=== PATIENT | male | born 1995 | race Caucasian/White ===

== ENCOUNTER → 2018-03-02 | Outpatient (CLI) | payer MEDICAID ==
[2018-03-02 13:59] LABS: ANION GAP 5 MEQ/L (8-16); BLOOD UREA NITROGEN 18 MG/DL (7-18); CALCIUM LEVEL 9.2 MG/DL (8.5-10.1); CARBON DIOXIDE LEVEL 33 MEQ/L (21-32); CHLORIDE LEVEL 102 MEQ/L (98-107); CREATININE FOR GFR 1.21 MG/DL (0.70-1.30); GLOMERULAR FILTRATION RATE > 60.0 (>60); GLUCOSE, FASTING 100 MG/DL (70-100); POTASSIUM SERUM 4.2 MEQ/L (3.5-5.1); SODIUM LEVEL 140 MEQ/L (136-145)
== END ==
LOC: M LAB 12:51
DX: Z00.00 Encounter for general adult medical examination without abnormal findings (principal)
CPT/HCPCS: 80048

== ENCOUNTER → 2021-12-01 | Outpatient (REF) | payer OTHER ==
[2021-12-01 17:16] LABS: HEMATOCRIT 41.6 % (42.0-52.0); HEMOGLOBIN 14.1 g/dl (13.5-17.5); MEAN CORPUSCULAR HEMOGLOBIN 29.7 pg (27.0-33.0); MEAN CORPUSCULAR HGB CONC 33.9 g/dl (32.0-36.5); MEAN CORPUSCULAR VOLUME 87.6 fl (80.0-96.0); PLATELET COUNT, AUTOMATED 223 10^3/uL (150-450); RED BLOOD COUNT 4.75 10^6/uL (4.30-6.10); WHITE BLOOD COUNT 6.3 10^3/uL (4.0-10.0)
[2021-12-01 17:54] LABS: ALT/SGPT 22 U/L (12-78); BILIRUBIN,TOTAL 0.5 MG/DL (0.2-1.0); BLOOD UREA NITROGEN 13 MG/DL (7-18); CALCIUM LEVEL 9.6 MG/DL (8.5-10.1); CARBON DIOXIDE LEVEL 33 MEQ/L (21-32); CHLORIDE LEVEL 104 MEQ/L (98-107); CREATININE FOR GFR 0.95 MG/DL (0.70-1.30); GLOMERULAR FILTRATION RATE > 60.0 (>60); GLUCOSE, FASTING 64 MG/DL (70-100); POTASSIUM SERUM 4.4 MEQ/L (3.5-5.1); SODIUM LEVEL 140 MEQ/L (136-145); TOTAL PROTEIN 7.3 GM/DL (6.4-8.2)
[2021-12-01 18:43] LABS: HEPATITIS B SURFACE ANTIGEN NEGATIVE (NEGATIVE)
[2021-12-01 18:57] LABS: GC DNA AMPLIFICATION NEGATIVE (NEGATIVE)
[2021-12-01 19:10] LABS: HEPATITIS C VIRUS ABY INDEX < 0.0 INDEX (<0.8)
[2021-12-01 19:11] LABS: HIV 1&2 SCREEN CENTAUR NEGATIVE (NEGATIVE)
== END ==
LOC: M LAB REF 16:23
PROVIDERS: ATTEND Family Medicine
DX: F11.20 Opioid dependence, uncomplicated (principal)

== ENCOUNTER 2022-03-22 19:24 | Inpatient (IN) | payer OTHER, SELFPAY ==
[~2022-03-22] VITALS: Ht 170.2 cm; Wt 69.5 kg
[2022-03-22 19:59] LABS: HEMOGLOBIN 14.5 g/dl (13.5-17.5); MEAN CORPUSCULAR HEMOGLOBIN 29.1 pg (27.0-33.0); MEAN CORPUSCULAR HGB CONC 34.5 g/dl (32.0-36.5); MEAN CORPUSCULAR VOLUME 84.3 fl (80.0-96.0); PLATELET COUNT, AUTOMATED 245 10^3/uL (150-450); RED BLOOD COUNT 4.98 10^6/uL (4.30-6.10)
[2022-03-22 20:29] LABS: AMPHETAMINES LEVEL URINE NEGATIVE (NEGATIVE)
[2022-03-22 20:30] LABS: BARBITURATES URINE NEGATIVE (NEGATIVE); BENZODIAZEPINES URINE NEGATIVE (NEGATIVE); OPIATES URINE NEGATIVE (NEGATIVE)
[2022-03-22 20:31] LABS: COCAINE METABOLITE URINE NEGATIVE (NEGATIVE); METHADONE URINE NEGATIVE (NEGATIVE); PHENCYCLIDINE URINE NEGATIVE (NEGATIVE)
[2022-03-22 20:33] LABS: ETHYL ALCOHOL (ETHANOL) 0.004 % (0.000-0.010)
[2022-03-22 20:34] LABS: ACETAMINOPHEN LEVEL < 2.0 UG/ML (10.0-20.0); BILIRUBIN,DIRECT 0.2 MG/DL (<0.4); CANNABINOIDS URINE POSITIVE (NEGATIVE)
[2022-03-22 20:35] LABS: ALBUMIN 4.8 G/DL (3.2-5.2); ALKALINE PHOSPHATASE 67 U/L (46-116); ALT/SGPT 19 U/L (7.0-40); AST/SGOT 35 U/L (<34); BILIRUBIN,TOTAL 0.5 MG/DL (0.3-1.2); BLOOD UREA NITROGEN 17 MG/DL (9-23); CALCIUM LEVEL 9.8 MG/DL (8.5-10.1); CARBON DIOXIDE LEVEL 30 MMOL/L (20-31); CHLORIDE LEVEL 104 MMOL/L (98-107); CREATININE FOR GFR 0.96 MG/DL (0.70-1.30); GLOMERULAR FILTRATION RATE > 60.0 (>60); GLUCOSE, FASTING 98 MG/DL (60-100); POTASSIUM SERUM 4.1 MMOL/L (3.5-5.1); SALICYLATE LEVEL < 3.0 MG/DL (<30); SODIUM LEVEL 140 MMOL/L (136-145); TOTAL PROTEIN 7.4 G/DL (5.7-8.2)
[2022-03-22 20:36] LABS: THYROID STIMULATING HORMONE 3.959 uIU/ML (0.55-4.78)
[2022-03-22 20:43] LABS: RSV AMPLIFICATION NEGATIVE (NEGATIVE)
[2022-03-22] MEDS ORDERED: HOME MED LIST COMPLETE! XX SCH (23:00)
[2022-03-23] MEDS ORDERED: MOM 30ML SUSPENSION UDC PO PRN (00:30)
[2022-03-23] MEDS ORDERED: ACETAMINOPHEN TAB 650MG DOSE (2X325MG) PO PRN (00:30)
[2022-03-23] MEDS ORDERED: MAALOX 30 ML SUSP *UDC PO PRN (00:30)
[2022-03-23] MEDS ORDERED: OLANZapine ORAL DISINTEGRATING TAB 5MG PO PRN (00:30)
[2022-03-23] MEDS: NICOTINE 14 MG/24 HR TRANSDERMAL TD SCH (09:00)
[2022-03-23] MEDS: OLANZapine 5 MG TAB PO SCH ×2 (09:00→21:00)
[2022-03-23] MEDS ORDERED: BUPRENORPHINE/NALOXONE 8-2MG SUBLINGUAL TABLET(SUBOXONE) SL SCH (21:00)
[2022-03-23] MEDS: traZODone 50 MG TAB PO PRN (21:05)
[2022-03-24 06:19] VITALS: BP 145/84
[2022-03-24] MEDS: OLANZapine 5 MG TAB PO SCH ×2 (09:00→22:09)
[2022-03-24] MEDS: NICOTINE 14 MG/24 HR TRANSDERMAL TD SCH (09:00)
[2022-03-25] MEDS: OLANZapine 5 MG TAB PO SCH ×2 (09:00→21:00)
[2022-03-25] MEDS: NICOTINE 14 MG/24 HR TRANSDERMAL TD SCH (09:00)
[2022-03-25 19:21] VITALS: BP 137/104
[2022-03-25] MEDS: traZODone 50 MG TAB PO PRN (21:27)
[2022-03-26] MEDS: NICOTINE 14 MG/24 HR TRANSDERMAL TD SCH (09:00)
[2022-03-26] MEDS: OLANZapine 5 MG TAB PO SCH ×2 (09:00→21:00)
[2022-03-26 16:28] VITALS: BP 136/90
[2022-03-27 06:22] VITALS: BP 140/102
[2022-03-27] MEDS: OLANZapine 5 MG TAB PO SCH ×2 (09:00→20:45)
[2022-03-27] MEDS: NICOTINE 14 MG/24 HR TRANSDERMAL TD SCH (09:00)
[2022-03-27 16:30] VITALS: BP 140/90
[2022-03-28 06:34] VITALS: BP 150/95
[2022-03-28] MEDS: OLANZapine 5 MG TAB PO SCH ×2 (09:00→20:31)
[2022-03-28] MEDS: NICOTINE 14 MG/24 HR TRANSDERMAL TD SCH (09:00)
[2022-03-29 06:59] VITALS: BP 143/77
[2022-03-29] MEDS: NICOTINE 14 MG/24 HR TRANSDERMAL TD SCH (09:00)
[2022-03-29] MEDS: OLANZapine 5 MG TAB PO SCH ×2 (09:00→20:19)
[2022-03-30 06:35] VITALS: BP 136/79
[2022-03-30] MEDS: OLANZapine 5 MG TAB PO SCH (08:24)
[2022-03-30] MEDS: NICOTINE 14 MG/24 HR TRANSDERMAL TD SCH (08:24)
[2022-03-30] MEDS ORDERED: NICO14PA TD (09:16)
== END 2022-03-30 15:00 | disposition home or self-care (01) | DRG 760 ==
LOC: M ED 19:24 → M ED INP 03-23 00:26 → M PSY 03-23 01:33
PROVIDERS: ADMIT Student in an Organized Health Care Education/Training Program; ATTEND Student in an Organized Health Care Education/Training Program
DX: F22 Delusional disorders (principal); F11.10 Opioid abuse, uncomplicated; F17.200 Nicotine dependence, unspecified, uncomplicated; F12.10 Cannabis abuse, uncomplicated

== ENCOUNTER 2022-04-21 12:36 | Inpatient (IN) | payer OTHER ==
[~2022-04-21] VITALS: Ht 170.2 cm; Wt 72.3 kg
[~2022-04-21 12:36] MED LIST: NICO14PA TD
[2022-04-21 13:17] LABS: HEMATOCRIT 47.7 % (42.0-52.0); HEMOGLOBIN 16.1 g/dl (13.5-17.5); MEAN CORPUSCULAR HEMOGLOBIN 30.1 pg (27.0-33.0); MEAN CORPUSCULAR HGB CONC 33.8 g/dl (32.0-36.5); MEAN CORPUSCULAR VOLUME 89.2 fl (80.0-96.0); PLATELET COUNT, AUTOMATED 207 10^3/uL (150-450); RED BLOOD COUNT 5.35 10^6/uL (4.30-6.10)
[2022-04-21 13:50] LABS: RSV AMPLIFICATION NEGATIVE (NEGATIVE)
[2022-04-21 14:03] LABS: ETHYL ALCOHOL (ETHANOL) 0.005 % (0.000-0.010)
[2022-04-21 14:04] LABS: SALICYLATE LEVEL < 3.0 MG/DL (<30)
[2022-04-21 14:05] LABS: ACETAMINOPHEN LEVEL < 2.0 UG/ML (10.0-20.0); ALBUMIN 4.8 G/DL (3.2-5.2); ALKALINE PHOSPHATASE 82 U/L (46-116); ALT/SGPT < 9 U/L (7.0-40); AST/SGOT 33 U/L (<34); BILIRUBIN,DIRECT 0.6 MG/DL (<0.4); BILIRUBIN,TOTAL 1.7 MG/DL (0.3-1.2); BLOOD UREA NITROGEN 23 MG/DL (9-23); CALCIUM LEVEL 9.5 MG/DL (8.5-10.1); CARBON DIOXIDE LEVEL 24 MMOL/L (20-31); CHLORIDE LEVEL 100 MMOL/L (98-107); CREATININE FOR GFR 1.06 MG/DL (0.70-1.30); GLOMERULAR FILTRATION RATE > 60.0 (>60); GLUCOSE, FASTING 72 MG/DL (60-100); POTASSIUM SERUM 3.7 MMOL/L (3.5-5.1); SODIUM LEVEL 138 MMOL/L (136-145); THYROID STIMULATING HORMONE 3.764 uIU/ML (0.55-4.78)
[2022-04-21 16:42] LABS: BARBITURATES URINE NEGATIVE (NEGATIVE); BENZODIAZEPINES URINE NEGATIVE (NEGATIVE); COCAINE METABOLITE URINE NEGATIVE (NEGATIVE); METHADONE URINE NEGATIVE (NEGATIVE)
[2022-04-21 16:43] LABS: OPIATES URINE NEGATIVE (NEGATIVE); PHENCYCLIDINE URINE NEGATIVE (NEGATIVE)
[2022-04-21 16:48] LABS: AMPHETAMINES LEVEL URINE POSITIVE (NEGATIVE); CANNABINOIDS URINE POSITIVE (NEGATIVE)
[2022-04-21] MEDS ORDERED: PEPC20TA18 PO (19:40)
[2022-04-21] MEDS ORDERED: HOME MED LIST COMPLETE! XX SCH (21:45)
[2022-04-22] MEDS: NICOTINE 21MG/24HR 1 EA TRANSDERMAL TD SCH (11:30)
[2022-04-22] MEDS ORDERED: traZODone 50 MG TAB PO PRN (12:25)
[2022-04-22] MEDS ORDERED: MOM 30ML SUSPENSION UDC PO PRN (12:25)
[2022-04-22] MEDS ORDERED: IBUPROFEN 400MG TAB PO PRN (12:25)
[2022-04-22] MEDS ORDERED: MAALOX 30 ML SUSP *UDC PO PRN (12:25)
[2022-04-22] MEDS ORDERED: HALOPERIDOL 5MG/ML 1ML VIAL As Ordered ONE (15:09)
[2022-04-22] MEDS ORDERED: LORazepam 2 MG/ML VIAL As Ordered ONE (15:09)
[2022-04-22] MEDS ORDERED: LORazepam 2 MG/ML VIAL IV STA (15:09)
[2022-04-22] MEDS ORDERED: OLANZapine INTRAMUSCULAR 10MG VIAL IM ONE (15:10)
[2022-04-22] MEDS ORDERED: diphenhydrAMINE 50MG/ML VIAL IM STA (15:20)
[2022-04-22] MEDS ORDERED: HALOPERIDOL 5MG/ML 1ML VIAL IM STA (15:20)
[2022-04-23 06:20] VITALS: BP 117/60
[2022-04-23] MEDS: NICOTINE 21MG/24HR 1 EA TRANSDERMAL TD SCH (09:00)
[2022-04-23] MEDS ORDERED: LIDOCAINE VISCOUS 2% SOLN 15ML UDC SS PRN (13:05)
[2022-04-23] MEDS ORDERED: BENZOCAINE 10% 9GM TUBE (ANBESOL) TOP PRN (13:05)
[2022-04-23] MEDS ORDERED: OLANZapine ORAL DISINTEGRATING TAB 5MG PO PRN (16:05)
[2022-04-23] MEDS: BENZOCAINE 10% 9GM TUBE (ANBESOL) MT SCH ×2 (16:25→21:00)
[2022-04-23] MEDS: OLANZapine 5 MG TAB PO SCH (21:00)
[2022-04-24 06:21] VITALS: BP 110/65
[2022-04-24] MEDS: NICOTINE 21MG/24HR 1 EA TRANSDERMAL TD SCH (09:00)
[2022-04-24] MEDS: OLANZapine 5 MG TAB PO SCH ×2 (09:00→21:00)
[2022-04-24] MEDS: BENZOCAINE 10% 9GM TUBE (ANBESOL) MT SCH ×4 (09:21→21:51)
[2022-04-24 14:26] VITALS: BP 158/112
[2022-04-24] MEDS ORDERED: amLODIPine 5 MG TAB PO ONE (14:40)
[2022-04-24] MEDS ORDERED: cloNIDine 0.1MG TABLET PO ONE (15:00)
[2022-04-24] MEDS ORDERED: ISOVUE-370 76% 100ML VIAL As Ordered ONE (15:13)
[2022-04-24 15:40] VITALS: BP 140/100
[2022-04-24 15:41] VITALS: BP 140/100
[2022-04-24 15:45] LABS: BLOOD UREA NITROGEN 16 MG/DL (9-23); CALCIUM LEVEL 9.4 MG/DL (8.5-10.1); CARBON DIOXIDE LEVEL 32 MMOL/L (20-31); CHLORIDE LEVEL 100 MMOL/L (98-107); CREATININE FOR GFR 0.95 MG/DL (0.70-1.30); GLOMERULAR FILTRATION RATE > 60.0 (>60); GLUCOSE, FASTING 92 MG/DL (60-100); POTASSIUM SERUM 4.4 MMOL/L (3.5-5.1); SODIUM LEVEL 138 MMOL/L (136-145)
[2022-04-24 15:48] LABS: PROLACTIN 15.81 NG/ML (2.1-17.7)
[2022-04-24 16:32] VITALS: BP 122/90
[2022-04-25 06:16] VITALS: BP 143/67
[2022-04-25] MEDS ORDERED: PROHANCE 279.3MG/ML 15ML VIAL As Ordered ONE (08:52)
[2022-04-25] MEDS: OLANZapine 5 MG TAB PO SCH ×2 (09:00→21:00)
[2022-04-25] MEDS: NICOTINE 21MG/24HR 1 EA TRANSDERMAL TD SCH (09:00)
[2022-04-25] MEDS: BENZOCAINE 10% 9GM TUBE (ANBESOL) MT SCH ×4 (09:25→21:00)
[2022-04-25 16:45] VITALS: BP 130/70
[2022-04-26] MEDS: NICOTINE 21MG/24HR 1 EA TRANSDERMAL TD SCH (09:00)
[2022-04-26] MEDS ORDERED: ASPIRIN 81MG ENTERIC TABLET PO SCH (09:00)
[2022-04-26] MEDS: OLANZapine 5 MG TAB PO SCH ×2 (09:00→21:00)
[2022-04-26] MEDS: BENZOCAINE 10% 9GM TUBE (ANBESOL) MT SCH ×4 (09:00→21:00)
[2022-04-26 18:19] VITALS: BP 137/77
[2022-04-27] MEDS: NICOTINE 21MG/24HR 1 EA TRANSDERMAL TD SCH (09:00)
[2022-04-27] MEDS: OLANZapine 5 MG TAB PO SCH (09:00)
[2022-04-27] MEDS: BENZOCAINE 10% 9GM TUBE (ANBESOL) MT SCH (09:00)
== END 2022-04-27 12:16 | disposition home or self-care (01) | DRG 751 ==
LOC: M ED 14:12 → M ED INP 04-22 12:23 → M PSY 04-22 23:27
PROVIDERS: ADMIT Student in an Organized Health Care Education/Training Program; ATTEND Psychiatry & Neurology Psychiatry
DX: F29 Unspecified psychosis not due to a substance or known physiological condition (principal); F17.200 Nicotine dependence, unspecified, uncomplicated; F15.90 Other stimulant use, unspecified, uncomplicated; F11.90 Opioid use, unspecified, uncomplicated; F14.90 Cocaine use, unspecified, uncomplicated; F12.90 Cannabis use, unspecified, uncomplicated

== ENCOUNTER 2022-09-06 11:19 | Emergency (ER) | payer OTHER ==
[~2022-09-06] VITALS: Ht 170.2 cm; Wt 68.2 kg
[~2022-09-06 11:19] MED LIST changes: +PEPC20TA18 PO
[2022-09-06 11:58] LABS: HEMATOCRIT 45.6 % (42.0-52.0); HEMOGLOBIN 15.2 g/dl (13.5-17.5); MEAN CORPUSCULAR HEMOGLOBIN 29.6 pg (27.0-33.0); MEAN CORPUSCULAR HGB CONC 33.3 g/dl (32.0-36.5); MEAN CORPUSCULAR VOLUME 88.9 fl (80.0-96.0); PLATELET COUNT, AUTOMATED 280 10^3/uL (150-450); RED BLOOD COUNT 5.13 10^6/uL (4.30-6.10); WHITE BLOOD COUNT 8.1 10^3/uL (4.0-10.0)
[2022-09-06 12:22] LABS: ETHYL ALCOHOL (ETHANOL) 0.006 % (0.000-0.010)
[2022-09-06 12:24] LABS: ACETAMINOPHEN LEVEL < 2.0 UG/ML (10.0-20.0); ALBUMIN 3.8 G/DL (3.2-5.2); ALKALINE PHOSPHATASE 93 U/L (46-116); ALT/SGPT 197 U/L (7.0-40); AST/SGOT 116 U/L (<34); BILIRUBIN,DIRECT < 0.1 MG/DL (<0.4); BILIRUBIN,TOTAL 0.3 MG/DL (0.3-1.2); BLOOD UREA NITROGEN 11 MG/DL (9-23); CARBON DIOXIDE LEVEL 30 MMOL/L (20-31); CHLORIDE LEVEL 101 MMOL/L (98-107); CREATININE FOR GFR 0.77 MG/DL (0.70-1.30); GLOMERULAR FILTRATION RATE > 60.0 (>60); GLUCOSE, FASTING 75 MG/DL (60-100); POTASSIUM SERUM 4.7 MMOL/L (3.5-5.1); SALICYLATE LEVEL 3.2 MG/DL (<30); SODIUM LEVEL 138 MMOL/L (136-145); TOTAL PROTEIN 6.7 G/DL (5.7-8.2)
[2022-09-06 12:26] LABS: THYROID STIMULATING HORMONE 1.928 uIU/ML (0.55-4.78)
[2022-09-06 12:31] LABS: PHENCYCLIDINE URINE NEGATIVE (NEGATIVE)
[2022-09-06 12:32] LABS: AMPHETAMINES LEVEL URINE NEGATIVE (NEGATIVE); BARBITURATES URINE NEGATIVE (NEGATIVE); BENZODIAZEPINES URINE NEGATIVE (NEGATIVE); CANNABINOIDS URINE NEGATIVE (NEGATIVE); COCAINE METABOLITE URINE NEGATIVE (NEGATIVE); METHADONE URINE NEGATIVE (NEGATIVE); OPIATES URINE NEGATIVE (NEGATIVE)
[2022-09-06 18:34] VITALS: BP 137/78
== END 2022-09-06 18:35 | disposition home or self-care (01) ==
LOC: M ED 11:19
DX: F15.10 Other stimulant abuse, uncomplicated (principal); F11.10 Opioid abuse, uncomplicated; F17.200 Nicotine dependence, unspecified, uncomplicated

== ENCOUNTER 2022-10-29 08:18 | Emergency (ER) | payer OTHER ==
[~2022-10-29] VITALS: Ht 170.2 cm; Wt 66.8 kg
[2022-10-29] MEDS ORDERED: SUBO8MIS SL (08:32)
[2022-10-29] MEDS ORDERED: ACETAMINOPHEN 500 MG TAB PO ONE (09:50)
[2022-10-29] MEDS ORDERED: LIDOCAINE W/EPINEPHRINE 1% 20ML VIAL SC ONE (09:55)
[2022-10-29] MEDS ORDERED: BOOSTRIX VACCINE (TETANUS/DIPHTH/ACEL. PERTUSSIS) 0.5ML SYR IM ONE (11:40)
[2022-10-29] MEDS ORDERED: IBUPROFEN 800 MG TAB PO ONE (13:05)
[2022-10-29 13:29] VITALS: BP 134/28; TEMP 98.2; O2SAT 94
== END 2022-10-29 13:32 | disposition home or self-care (01) ==
LOC: M ED 08:18
DX: S01.412A Laceration without foreign body of left cheek and temporomandibular area, initial encounter (principal); S03.00XA Dislocation of jaw, unspecified side, initial encounter; S22.32XA Fracture of one rib, left side, initial encounter for closed fracture; F17.200 Nicotine dependence, unspecified, uncomplicated; B17.10 Acute hepatitis C without hepatic coma; Y04.0XXA Assault by unarmed brawl or fight, initial encounter; Y92.149 Unspecified place in prison as the place of occurrence of the external cause; Z79.899 Other long term (current) drug therapy

== ENCOUNTER 2023-01-20 17:45 | Emergency (ER) | payer OTHER ==
[~2023-01-20 17:45] MED LIST changes: +CEPH500C PO; +IBUP-1022 PO; +SUBO8MIS SL
[2023-01-20 18:36] LABS: HEMATOCRIT 31.9 % (42.0-52.0); HEMOGLOBIN 10.7 g/dl (13.5-17.5); MEAN CORPUSCULAR HEMOGLOBIN 29.5 pg (27.0-33.0); MEAN CORPUSCULAR HGB CONC 33.5 g/dl (32.0-36.5); MEAN CORPUSCULAR VOLUME 87.9 fl (80.0-96.0); PLATELET COUNT, AUTOMATED 311 10^3/uL (150-450); RED BLOOD COUNT 3.63 10^6/uL (4.30-6.10); WHITE BLOOD COUNT 6.5 10^3/uL (4.0-10.0)
[2023-01-20 19:01] LABS: ETHYL ALCOHOL (ETHANOL) < 0.003 % (0.000-0.010)
[2023-01-20 19:03] LABS: ACETAMINOPHEN LEVEL < 2.0 UG/ML (10.0-20.0); ALBUMIN 3.2 G/DL (3.2-5.2); ALKALINE PHOSPHATASE 80 U/L (46-116); ALT/SGPT 28 U/L (7.0-40); AST/SGOT 29 U/L (<34); BILIRUBIN,DIRECT 0.2 MG/DL (<0.4); BILIRUBIN,TOTAL 0.5 MG/DL (0.3-1.2); BLOOD UREA NITROGEN 12 MG/DL (9-23); CALCIUM LEVEL 8.5 MG/DL (8.5-10.1); CARBON DIOXIDE LEVEL 29 MMOL/L (20-31); CHLORIDE LEVEL 109 MMOL/L (98-107); CREATININE FOR GFR 0.68 MG/DL (0.70-1.30); GLOMERULAR FILTRATION RATE > 60.0 (>60); GLUCOSE, FASTING 108 MG/DL (60-100); POTASSIUM SERUM 4.1 MMOL/L (3.5-5.1); SALICYLATE LEVEL < 3.0 MG/DL (<30); SODIUM LEVEL 142 MMOL/L (136-145); TOTAL PROTEIN 5.8 G/DL (5.7-8.2)
[2023-01-20 19:04] LABS: THYROID STIMULATING HORMONE 0.886 uIU/ML (0.55-4.78)
[2023-01-20 19:10] LABS: AMPHETAMINES LEVEL URINE NEGATIVE (NEGATIVE); BARBITURATES URINE NEGATIVE (NEGATIVE)
[2023-01-20 19:11] LABS: BENZODIAZEPINES URINE NEGATIVE (NEGATIVE); CANNABINOIDS URINE NEGATIVE (NEGATIVE); COCAINE METABOLITE URINE NEGATIVE (NEGATIVE); METHADONE URINE NEGATIVE (NEGATIVE); OPIATES URINE NEGATIVE (NEGATIVE); PHENCYCLIDINE URINE NEGATIVE (NEGATIVE)
[2023-01-21 12:03] VITALS: BP 144/84; TEMP 97.2; O2SAT 98
[2023-01-21] MEDS ORDERED: IBUP-1022 PO (21:04)
[2023-01-21] MEDS ORDERED: CEPH500C PO (21:04)
== END 2023-01-21 13:39 | disposition home or self-care (01) ==
LOC: M ED 17:45
DX: F39 Unspecified mood [affective] disorder (principal)

== ENCOUNTER 2023-01-21 18:42 | Inpatient (IN) | payer OTHER ==
[~2023-01-21] VITALS: Ht 170.2 cm; Wt 63.5 kg
[2023-01-21 21:01] LABS: HEMATOCRIT 34.8 % (42.0-52.0); HEMOGLOBIN 11.8 g/dl (13.5-17.5); MEAN CORPUSCULAR HEMOGLOBIN 29.4 pg (27.0-33.0); MEAN CORPUSCULAR HGB CONC 33.9 g/dl (32.0-36.5); MEAN CORPUSCULAR VOLUME 86.6 fl (80.0-96.0); PLATELET COUNT, AUTOMATED 403 10^3/uL (150-450); RED BLOOD COUNT 4.02 10^6/uL (4.30-6.10)
[2023-01-21] MEDS ORDERED: IBUP-1022 PO (21:04)
[2023-01-21] MEDS ORDERED: CEPH500C PO (21:04)
[2023-01-21] MEDS ORDERED: HOME MED LIST COMPLETE! XX SCH (21:05)
[2023-01-21 21:24] LABS: AMPHETAMINES LEVEL URINE NEGATIVE (NEGATIVE); BENZODIAZEPINES URINE NEGATIVE (NEGATIVE)
[2023-01-21 21:25] LABS: BARBITURATES URINE NEGATIVE (NEGATIVE); CANNABINOIDS URINE NEGATIVE (NEGATIVE); COCAINE METABOLITE URINE NEGATIVE (NEGATIVE); METHADONE URINE NEGATIVE (NEGATIVE); OPIATES URINE NEGATIVE (NEGATIVE); PHENCYCLIDINE URINE NEGATIVE (NEGATIVE)
[2023-01-21 21:26] LABS: CK-MB VALUE MASS 2.6 NG/ML (<3.6)
[2023-01-21 21:27] LABS: ETHYL ALCOHOL (ETHANOL) < 0.003 % (0.000-0.010)
[2023-01-21 21:28] LABS: CPK CREATINE PHOSPHOKINASE 384 U/L (46-171); MB/CK RELATIVE INDEX 0.67 (< OR =4)
[2023-01-21 21:29] LABS: SALICYLATE LEVEL < 3.0 MG/DL (<30)
[2023-01-21 21:30] LABS: THYROID STIMULATING HORMONE 1.134 uIU/ML (0.55-4.78)
[2023-01-21 21:31] LABS: ALBUMIN 3.6 G/DL (3.2-5.2); ALKALINE PHOSPHATASE 83 U/L (46-116); ALT/SGPT 26 U/L (7.0-40); AST/SGOT 21 U/L (<34); BILIRUBIN,DIRECT 0.2 MG/DL (<0.4); BILIRUBIN,TOTAL 0.4 MG/DL (0.3-1.2); BLOOD UREA NITROGEN 12 MG/DL (9-23); CALCIUM LEVEL 9.2 MG/DL (8.5-10.1); CARBON DIOXIDE LEVEL 30 MMOL/L (20-31); CHLORIDE LEVEL 106 MMOL/L (98-107); CREATININE FOR GFR 0.58 MG/DL (0.70-1.30); GLOMERULAR FILTRATION RATE > 60.0 (>60); GLUCOSE, FASTING 107 MG/DL (60-100); POTASSIUM SERUM 4.1 MMOL/L (3.5-5.1); SODIUM LEVEL 141 MMOL/L (136-145); TOTAL PROTEIN 6.6 G/DL (5.7-8.2)
[2023-01-21 22:35] LABS: CK-MB VALUE MASS 2.3 NG/ML (<3.6)
[2023-01-21 22:38] LABS: MB/CK RELATIVE INDEX 0.62 (< OR =4)
[2023-01-22] MEDS: CEPHALEXIN 500 MG CAP PO SCH ×4 (00:25→21:25)
[2023-01-22 01:45] LABS: AMORPHOUS SEDIMENT SMALL (NEGATIVE); APPEARANCE, URINE CLOUDY (CLEAR); BACTERIA, URINE AUTO NEGATIVE (NEGATIVE); BILIRUBIN, URINE AUTO NEGATIVE (NEGATIVE); BLOOD, URINE BLOOD NEGATIVE (NEGATIVE); CALCIUM OXALATE CRYSTALS SMALL; COLOR, URINE AMBER (YELLOW); GLUCOSE, URINE (UA) AUTO 1+ mg/dL (NEGATIVE); KETONE, URINE AUTO NEGATIVE (NEGATIVE); LEUKOCYTE ESTERASE, URINE AUTO NEGATIVE (NEGATIVE); MUCUS, URINE MODERATE (NEGATIVE); NITRITE, URINE AUTO NEGATIVE (NEGATIVE); PROTEIN, URINE AUTO 1+ mg/dL (NEGATIVE); RBC, URINE AUTO 0 /HPF (0-3); SQUAMOUS EPITHELIAL CELL UR AU 0 /HPF (0-6); WBC, URINE AUTO 1 /HPF (0-3)
[2023-01-23] MEDS: CEPHALEXIN 500 MG CAP PO SCH ×3 (08:23→20:08)
[2023-01-23] MEDS ORDERED: ACETAMINOPHEN TAB 650MG DOSE (2X325MG) PO ONE (20:05)
[2023-01-24] MEDS: CEPHALEXIN 500 MG CAP PO SCH ×3 (09:12→20:32)
[2023-01-24] MEDS ORDERED: MOM 30ML SUSPENSION UDC PO PRN (15:25)
[2023-01-24] MEDS ORDERED: diphenhydrAMINE 25MG CAP PO PRN (15:25)
[2023-01-24 17:50] VITALS: BP 136/94; TEMP 98.4; O2SAT 98
[2023-01-25 06:50] VITALS: BP 154/110; TEMP 99.5; O2SAT 99
[2023-01-25 09:43] VITALS: BP 120/82
[2023-01-25 16:12] VITALS: BP 146/98; TEMP 98.5; O2SAT 100
[2023-01-25] MEDS: OLANZapine ORAL DISINTEGRATING TAB 5MG PO PRN (18:15)
[2023-01-26 06:52] VITALS: BP 143/87; TEMP 98.1; O2SAT 98
[2023-01-26 16:32] VITALS: BP 138/95; TEMP 99.3; O2SAT 98
[2023-01-27 06:31] VITALS: BP 144/96; TEMP 98.7; O2SAT 98
[2023-01-27] MEDS: BENZTROPINE 1 MG TAB PO SCH ×2 (13:23→20:11)
[2023-01-27] MEDS: OLANZapine 5 MG TAB PO SCH ×2 (13:23→20:11)
[2023-01-27] MEDS: NICOTINE 21MG/24HR 1 EA TRANSDERMAL TD SCH (15:58)
[2023-01-27 18:19] VITALS: BP 177/114; TEMP 98.7; O2SAT 99
[2023-01-27 18:20] VITALS: BP 165/110
[2023-01-27] MEDS: QUEtiapine FUMARATE 50MG TAB PO SCH (20:11)
[2023-01-28 06:27] VITALS: BP 144/86; TEMP 98.2; O2SAT 97
[2023-01-28 06:56] LABS: CHOLESTEROL RISK RATIO 3.19 (<5); HDL CHOLESTEROL 44.4 MG/DL (>40); LDL CHOLESTEROL 56.6 MG/DL (<100); NON-HDL-C 97.6 MG/DL
[2023-01-28] MEDS: NICOTINE 21MG/24HR 1 EA TRANSDERMAL TD SCH (09:00)
[2023-01-28] MEDS: OLANZapine 5 MG TAB PO SCH ×2 (09:35→20:25)
[2023-01-28] MEDS: BENZTROPINE 1 MG TAB PO SCH ×2 (09:35→20:26)
[2023-01-28] MEDS: OLANZapine ORAL DISINTEGRATING TAB 5MG PO PRN (15:31)
[2023-01-28] MEDS: QUEtiapine FUMARATE 50MG TAB PO SCH (20:26)
[2023-01-29 06:51] VITALS: BP 139/88; TEMP 98.6; O2SAT 98
[2023-01-29] MEDS: NICOTINE 21MG/24HR 1 EA TRANSDERMAL TD SCH (09:00)
[2023-01-29] MEDS: OLANZapine 5 MG TAB PO SCH ×2 (09:14→20:12)
[2023-01-29] MEDS: BENZTROPINE 1 MG TAB PO SCH ×2 (09:14→20:12)
[2023-01-29 16:25] VITALS: BP 140/92; TEMP 98.3; O2SAT 97
[2023-01-29] MEDS: ACETAMINOPHEN TAB 650MG DOSE (2X325MG) PO PRN (18:50)
[2023-01-29] MEDS: traZODone 50 MG TAB PO PRN (20:12)
[2023-01-29] MEDS: QUEtiapine FUMARATE 50MG TAB PO SCH (20:12)
[2023-01-30] MEDS: OLANZapine 5 MG TAB PO SCH ×2 (08:58→21:01)
[2023-01-30] MEDS: NICOTINE 21MG/24HR 1 EA TRANSDERMAL TD SCH (08:58)
[2023-01-30] MEDS: ACETAMINOPHEN TAB 650MG DOSE (2X325MG) PO PRN (08:58)
[2023-01-30] MEDS: BENZTROPINE 1 MG TAB PO SCH ×2 (08:58→21:01)
[2023-01-30 16:07] VITALS: BP 140/90; TEMP 98.7; O2SAT 98
[2023-01-30] MEDS: traZODone 50 MG TAB PO PRN (21:01)
[2023-01-30] MEDS: QUEtiapine FUMARATE 50MG TAB PO SCH (21:01)
[2023-01-30] MEDS: IBUPROFEN 400MG TAB PO PRN (21:03)
[2023-01-31 06:09] VITALS: BP 140/95; TEMP 99.2; O2SAT 98
[2023-01-31] MEDS: NICOTINE 21MG/24HR 1 EA TRANSDERMAL TD SCH (09:00)
[2023-01-31] MEDS: BENZTROPINE 1 MG TAB PO SCH ×2 (09:27→20:00)
[2023-01-31] MEDS: OLANZapine 5 MG TAB PO SCH (09:28)
[2023-01-31] MEDS: IBUPROFEN 400MG TAB PO PRN (11:29)
[2023-01-31 18:33] VITALS: BP 150/100; TEMP 99.1; O2SAT 95
[2023-01-31] MEDS: OLANZapine 10 MG TAB PO SCH (20:00)
[2023-01-31] MEDS: QUEtiapine FUMARATE 50MG TAB PO SCH (20:00)
[2023-01-31] MEDS: traZODone 50 MG TAB PO PRN (20:00)
[2023-02-01 06:05] VITALS: BP 136/71; TEMP 98.1; O2SAT 97
[2023-02-01] MEDS: BENZTROPINE 1 MG TAB PO SCH ×2 (08:31→20:06)
[2023-02-01] MEDS: OLANZapine 10 MG TAB PO SCH ×2 (08:31→20:06)
[2023-02-01] MEDS: ACETAMINOPHEN TAB 650MG DOSE (2X325MG) PO PRN (08:32)
[2023-02-01] MEDS: NICOTINE 21MG/24HR 1 EA TRANSDERMAL TD SCH (08:33)
[2023-02-01] MEDS: IBUPROFEN 400MG TAB PO PRN (14:56)
[2023-02-01] MEDS: MAALOX 30 ML SUSP *UDC PO PRN (16:57)
[2023-02-01 19:09] VITALS: BP 114/88; TEMP 99.2; O2SAT 99
[2023-02-01] MEDS: QUEtiapine FUMARATE 50MG TAB PO SCH (20:06)
[2023-02-02 06:22] VITALS: BP 140/90; TEMP 97.6; O2SAT 98
[2023-02-02] MEDS: NICOTINE 21MG/24HR 1 EA TRANSDERMAL TD SCH (09:00)
[2023-02-02] MEDS: OLANZapine 10 MG TAB PO SCH ×2 (09:20→20:01)
[2023-02-02] MEDS: BENZTROPINE 1 MG TAB PO SCH ×2 (09:20→20:01)
[2023-02-02] MEDS: ACETAMINOPHEN TAB 650MG DOSE (2X325MG) PO PRN ×2 (10:17→20:01)
[2023-02-02 16:05] VITALS: BP 139/80; TEMP 98.4; O2SAT 99
[2023-02-02] MEDS: QUEtiapine FUMARATE 50MG TAB PO SCH (20:00)
[2023-02-03 06:46] VITALS: BP 147/93; TEMP 99.1; O2SAT 98
[2023-02-03] MEDS: BENZTROPINE 1 MG TAB PO SCH ×2 (10:13→19:58)
[2023-02-03] MEDS: OLANZapine 10 MG TAB PO SCH ×2 (10:13→19:58)
[2023-02-03] MEDS: NICOTINE 21MG/24HR 1 EA TRANSDERMAL TD SCH (10:15)
[2023-02-03] MEDS: ACETAMINOPHEN TAB 650MG DOSE (2X325MG) PO PRN ×2 (10:15→20:00)
[2023-02-03 18:25] VITALS: BP 148/92; TEMP 98.8; O2SAT 98
[2023-02-03] MEDS: QUEtiapine FUMARATE 50MG TAB PO SCH (19:57)
[2023-02-04 06:34] VITALS: BP 152/97; TEMP 99.1; O2SAT 99
[2023-02-04] MEDS: NICOTINE 21MG/24HR 1 EA TRANSDERMAL TD SCH (09:00)
[2023-02-04] MEDS: OLANZapine 10 MG TAB PO SCH ×2 (09:02→20:06)
[2023-02-04] MEDS: BENZTROPINE 1 MG TAB PO SCH ×2 (09:02→20:06)
[2023-02-04 16:30] VITALS: BP 150/90; TEMP 99; O2SAT 98
[2023-02-04] MEDS: ACETAMINOPHEN TAB 650MG DOSE (2X325MG) PO PRN (17:27)
[2023-02-04] MEDS: traZODone 50 MG TAB PO PRN (20:06)
[2023-02-04] MEDS: QUEtiapine FUMARATE 50MG TAB PO SCH (20:06)
[2023-02-04] MEDS: PILL CUTTER 1 EACH XX PRN (20:06)
[2023-02-05 05:52] VITALS: BP 135/87; TEMP 98; O2SAT 100
[2023-02-05] MEDS: BENZTROPINE 1 MG TAB PO SCH ×2 (08:40→20:32)
[2023-02-05] MEDS: OLANZapine 10 MG TAB PO SCH ×2 (08:41→20:30)
[2023-02-05] MEDS: ACETAMINOPHEN TAB 650MG DOSE (2X325MG) PO PRN ×2 (08:42→20:33)
[2023-02-05] MEDS: NICOTINE 21MG/24HR 1 EA TRANSDERMAL TD SCH (08:46)
[2023-02-05 18:34] VITALS: BP 150/92; TEMP 99.2; O2SAT 100
[2023-02-05 18:55] VITALS: BP 153/78; TEMP 98.4; O2SAT 97
[2023-02-05] MEDS: QUEtiapine FUMARATE 50MG TAB PO SCH (20:32)
[2023-02-06] MEDS: NICOTINE 21MG/24HR 1 EA TRANSDERMAL TD SCH (09:00)
[2023-02-06] MEDS: BENZTROPINE 1 MG TAB PO SCH ×2 (09:31→20:07)
[2023-02-06] MEDS: OLANZapine 10 MG TAB PO SCH ×2 (09:31→20:08)
[2023-02-06] MEDS: ACETAMINOPHEN TAB 650MG DOSE (2X325MG) PO PRN ×2 (09:32→20:06)
[2023-02-06] MEDS: PILL CUTTER 1 EACH XX PRN (09:34)
[2023-02-06 18:00] VITALS: BP 138/79; TEMP 98.3; O2SAT 98
[2023-02-06] MEDS: traZODone 50 MG TAB PO PRN (20:06)
[2023-02-06] MEDS: QUEtiapine FUMARATE 50MG TAB PO SCH (20:06)
[2023-02-07 06:00] VITALS: BP 129/66; TEMP 97.6; O2SAT 96
[2023-02-07] MEDS: NICOTINE 21MG/24HR 1 EA TRANSDERMAL TD SCH (09:00)
[2023-02-07] MEDS: OLANZapine 10 MG TAB PO SCH ×2 (09:03→20:00)
[2023-02-07] MEDS: BENZTROPINE 1 MG TAB PO SCH ×2 (09:03→19:59)
[2023-02-07 16:13] VITALS: BP 146/96; TEMP 99
[2023-02-07] MEDS: QUEtiapine FUMARATE 50MG TAB PO SCH (19:59)
[2023-02-07] MEDS: ACETAMINOPHEN TAB 650MG DOSE (2X325MG) PO PRN (20:01)
[2023-02-07] MEDS: MAALOX 30 ML SUSP *UDC PO PRN (21:00)
[2023-02-08 06:45] VITALS: BP 128/84; TEMP 97.7; O2SAT 98
[2023-02-08] MEDS: NICOTINE 21MG/24HR 1 EA TRANSDERMAL TD SCH (09:00)
[2023-02-08] MEDS ORDERED: BENZ1TAB5 PO (09:28)
[2023-02-08] MEDS ORDERED: OLAN1TAB20 PO (09:29)
[2023-02-08] MEDS ORDERED: NICO21PAT TD (09:29)
[2023-02-08] MEDS ORDERED: TRAZ-252 PO (09:29)
[2023-02-08] MEDS ORDERED: QUET50TA4 PO (09:29)
[2023-02-08] MEDS: BENZTROPINE 1 MG TAB PO SCH (09:32)
[2023-02-08] MEDS: PILL CUTTER 1 EACH XX PRN (09:33)
[2023-02-08] MEDS: OLANZapine 10 MG TAB PO SCH (09:33)
== END 2023-02-08 11:27 | disposition home or self-care (01) | DRG 751 ==
LOC: M ED 18:42 → M ED INP 01-24 15:21 → M PSY 01-24 17:48
PROVIDERS: ADMIT Student in an Organized Health Care Education/Training Program; ATTEND Student in an Organized Health Care Education/Training Program
DX: F29 Unspecified psychosis not due to a substance or known physiological condition (principal); R44.0 Auditory hallucinations; R45.851 Suicidal ideations; R45.850 Homicidal ideations; F60.2 Antisocial personality disorder; Z59.00 Homelessness unspecified; R03.0 Elevated blood-pressure reading, without diagnosis of hypertension; F17.200 Nicotine dependence, unspecified, uncomplicated; Z79.899 Other long term (current) drug therapy